=== PATIENT | male | born 1990 | race American Indian/Alaskan Native ===

== ENCOUNTER 2022-02-12 13:19 | Outpatient (CLI) | payer BC ==
--- NOTE | 2022-02-13 11:51 | Electrocardiograph Report ---
[facility] Test Date: 2022-02-12 Test Time: 13:40:48 Pat Name: CANDICE ABRAHAM Department: Room: Gender: M Food [employer]: NICHOLAS : 1990 Requested By: MAINOR AGUILAR Order Number: [id number] Reading MD: Heber Bingham Measurements Intervals [place] Rate: 55 P: 45 [place]: 180 QRS: 73 QRSD: 104 T: 36 QT: 399 QTc: 383 Interpretive Statements Sinus rhythm ST elev, probable normal early repol pattern No previous ECG available for comparison Electronically Signed On 02-13-2022 11:51:06 EDT by Heber Bingham
== END 2022-02-12 13:20 | disposition home or self-care (01) ==
LOC: CARD 13:19
PROVIDERS: ATTEND Internal Medicine
DX: R07.9 Chest pain, unspecified (principal)
CPT/HCPCS: 93005